=== PATIENT | male | born 1960 | race Caucasian/White ===

== ENCOUNTER 2019-07-30 07:18 | Day surgery (SDC) | payer OTHER ==
[~2019-07-30 07:18] MED LIST: Lactated Ringers 1,000 ML IV SCH; Sodium Chloride 0.9% 10 ML SDV IV PRN; Sodium Chloride 0.9% 10 ML Syringe FLUSH PRN; Sodium Chloride 0.9% 2.5 ML Syringe FLUSH PRN; ceFAZolin 2 GM in Premix Bag 1 BAG IV ONE
--- NOTE | 2019-07-30 08:54 | PCM.PREANE ---
Preanesthetic Assessment - Anesthesia/Transfusion/Family Hx Anesthesia History: Prior Anesthesia Without Reaction (prior stone surg) Family History of Anesthesia Reaction: No Transfusion History: No Prior Transfusion(s) - Review of Systems General: No Symptoms Pulmonary: No Symptoms Cardiovascular: No Symptoms Gastrointestinal: No Symptoms Neurological: No Symptoms Other: Reports: None - Physical Assessment Vital Signs: Last Vital Signs Temp 97.5 F 07/30/19 07:33 Pulse 58 L 07/30/19 07:33 Resp 18 07/30/19 07:33 BP 143/80 H 07/30/19 07:33 Pulse Ox 96 07/30/19 07:33 Height: 5 ft 10 in Weight: 104.78 kg ASA Class: 2 Mental Status: Alert & Oriented x3 Airway Class: Mallampati = 2 Dentition: Reports: Normal Dentition ROM/Head Extension: Full Lungs: Clear to Auscultation, Normal Respiratory Effort Cardiovascular: Regular Rate, Regular Rhythm - Allergies Allergies/Adverse Reactions: Allergies Allergy/AdvReac Type Severity Reaction Status Date / Time No Known Allergies Allergy Verified 07/29/19 15:50 - Blood Blood Available: No - Anesthesia Plan Pre-Op Medication Ordered: None - Acknowledgements Anesthesia Type Planned: General Anesthesia Pt an Appropriate Candidate for the Planned Anesthesia: Yes Alternatives and Risks of Anesthesia Discussed w Pt/Guardian: Yes Pt/Guardian Understands and Agrees with Anesthesia Plan: Yes Additional Comments: PMH: htn, dm2- diet controlled, cervical canal stenosis- asymptomatic PLAN: get PreAnesthesia Questionnaire HEENT History: Reports: None Cardiovascular History: Reports: Hypertension Respiratory History: Reports: None Gastrointestinal History: Reports: None Genitourinary History: Reports: Renal Calculus Musculoskeletal History: Reports: None Neurological History: Reports: None Psychiatric History: Reports: None Endocrine/Metabolic History: Reports: Diabetes, Type II, Obesity/BMI 30+ Other Endocrine/Metabolic History: diet controlled type II diabetes Hematologic History: Reports: None Immunologic History: Reports: None Oncologic (Cancer) History: Reports: None Dermatologic History: Reports: None - Past Surgical History Head Surgeries/Procedures: Reports: None HEENT Surgical History: Reports: None Cardiovascular Surgical History: Reports: None Respiratory Surgical History: Reports: None GI Surgical History: Reports: None Male Surgical History: Reports: Kidney Stone Extraction, Lithotripsy ([facility]) Other Male Surgeries/Procedures: multiple ureteroscopies with stone removed and stent placement Endocrine Surgical History: Reports: None Neurological Surgical History: Reports: None Musculoskeletal Surgical History: Reports: None Oncologic Surgical History: Reports: None Dermatological Surgical History: Reports: None - SUBSTANCE USE Smoking Status *Q: Never Smoker Recreational Drug Use History: No - HOME MEDS Home Medications: Home Meds Pumpkin Seed Extract/Soy Germ [Azo Bladder Control Capsule] 1 tab PO ASDIRECTED PRN 07/29/19 [History] amLODIPine Besylate/Benazepril [Amlodipine-Benazepril 5-10 MG] 1 tab PO DAILY [History] - CURRENT (IN HOUSE) MEDS Current Meds: Current Medications Lactated Ringer's (Ringers, Lactated) 1,000 mls @ 100 mls/hr IV ASDIRECTED [facility] Last Admin: 07/30/19 07:43 Dose: 100 mls/hr Sodium Chloride (Saline Flush) 10 ml FLUSH ASDIRECTED PRN PRN Reason: Keep Vein Open Sodium Chloride (Saline Flush) 2.5 ml FLUSH ASDIRECTED PRN PRN Reason: Keep Vein Open Sodium Chloride (Normal Saline) 10 ml IV ASDIRECTED PRN PRN Reason: IV Use Discontinued Medications Cefazolin Sodium/Dextrose 2 gm (/ Premix) 50 mls @ 100 mls/hr IV ONCALL ONE Stop: 07/30/19 00:30
[2019-07-30] MEDS ORDERED: Midazolam 1 MG/ML 2 ML SDV ONE (09:19)
[2019-07-30] MEDS ORDERED: Lidocaine 2% 5 ML SDV ONE (09:20)
[2019-07-30] MEDS ORDERED: Propofol 200 MG/20 ML SDV ONE (09:20)
[2019-07-30] MEDS ORDERED: fentaNYL 100 MCG/2 ML SDV ONE (09:20)
[2019-07-30] MEDS ORDERED: Iopamidol 408 MG/ML 50 ML SDV ONE (09:40)
[2019-07-30] MEDS ORDERED: Glycopyrrolate 0.2 MG/ML SDV ONE (10:21)
[2019-07-30] MEDS ORDERED: Ondansetron 4 MG/2 ML SDV ONE (10:23)
[2019-07-30] MEDS ORDERED: Ketorolac 30 MG/ML SDV ONE (10:24)
[2019-07-30] MEDS ORDERED: [UNRECOGNIZED DRUG - OTHER] PO PRN (10:54)
[2019-07-30] MEDS ORDERED: SOY GERM PO PRN (10:54)
[2019-07-30] MEDS ORDERED: PUMPKIN SEED EXTRACT PO PRN (10:54)
--- NOTE | 2019-07-30 11:27 | PCM.POSTAN ---
POST ANESTHESIA ASSESSMENT - MENTAL STATUS Mental Status: Alert, Oriented - VITAL SIGNS Vital Signs: Last Vital Signs Temp 98.1 F 07/30/19 10:53 Pulse 63 07/30/19 11:23 Resp 8 L 07/30/19 11:23 BP 150/95 H 07/30/19 11:23 Pulse Ox 96 07/30/19 11:23 - RESPIRATORY Respiratory Status: Respiratory Rate WNL, Airway Patent, O2 Saturation Stable - CARDIOVASCULAR CV Status: Pulse Rate WNL, Blood Pressure Stable - GASTROINTESTINAL GI Status: No Symptoms - POST OP HYDRATION Hydration Status: Adequate & Stable
--- NOTE | 2019-07-30 13:35 | PCM48HPAN ---
Post Anesthesia Note - EVALUATION WITHIN 48HRS OF ANESTHETIC Vital Signs in Normal Range: Yes Patient Participated in Evaluation: Yes Respiratory Function Stable: Yes Airway Patent: Yes Cardiovascular Function Stable: Yes Hydration Status Stable: Yes Pain Control Satisfactory: Yes Nausea and Vomiting Control Satisfactory: Yes Mental Status Recovered: Yes Vital Signs: Last Vital Signs Temp 97.3 F 07/30/19 11:30 Pulse 52 L 07/30/19 12:15 Resp 16 07/30/19 12:15 BP 154/102 H 07/30/19 12:15 Pulse Ox 96 07/30/19 12:15
--- NOTE | 2019-07-30 14:13 | OR ---
SURGEON: Nik Dougherty M.D. DATE OF PROCEDURE: 07/30/2019 PREOPERATIVE DIAGNOSIS: Left lower ureteral stone. POSTOPERATIVE DIAGNOSES: Bladder stone. OPERATION: Cystolithotripsy using the laser. DESCRIPTION OF PROCEDURE: The patient was given general anesthesia. He was in dorsal lithotomy position, prepped and draped in sterile drapes. Cystoscopy was done. The stone was in the bladder. The holmium laser was applied to the stone and eventually broken into multitude of pieces that were all irrigated out. At the end, the bladder looked slightly irritated, but no significant injury. The patient was moved to recovery room in good condition. MAR / RENE /[id number]
[2019-07-31] MEDS ORDERED: [UNRECOGNIZED DRUG - OTHER] PO SCH (09:00)
[2019-07-31] MEDS ORDERED: AMLODIPINE BESYLATE PO SCH (09:00)
[2019-07-31] MEDS ORDERED: BENAZEPRIL PO SCH (09:00)
== END 2019-07-30 12:45 | disposition home or self-care (01) ==
LOC: MW.SDS 07:18
PROVIDERS: ATTEND Urology
DX: N20.1 Calculus of ureter (principal); I10 Essential (primary) hypertension; E11.9 Type 2 diabetes mellitus without complications; E78.5 Hyperlipidemia, unspecified; M48.02 Spinal stenosis, cervical region; Z79.899 Other long term (current) drug therapy
CPT/HCPCS: 52317; 88300; J1885; J2001; J2250; J2405; J2704; J3010; J3490; J7120; Q9966

== ENCOUNTER 2023-06-30 16:14 | Emergency (ER) | payer BC, MEDICARE, OTHER ==
[2023-06-30 17:08] LABS: APPEARANCE,URINE CLEAR; BILIRUBIN,URINE NEGATIVE (NEGATIVE); COLOR,URINE YELLOW; GLUCOSE,URINE >=1000 mg/dL (NEGATIVE); KETONES,URINE 15 mg/dL (NEGATIVE); LEUKOCYTE ESTERASE,URINE NEGATIVE (NEGATIVE); NITRITE,URINE NEGATIVE (NEGATIVE); OCCULT BLOOD,URINE SMALL (NEGATIVE); PH,URINE 5.5 (5.0-8.0); PROTEIN,URINE NEGATIVE (NEGATIVE); UROBILINOGEN,URINE 0.2 EU/dL (<2.0)
[2023-06-30 17:18] LABS: BACTERIA,URINE NOT SEEN (NEGATIVE); EPITHELIAL CELLS,URINE RARE (NONE-FEW); RBC,URINE 0-2 (0-2/HPF); WBC,URINE NONE SEEN (0-5/HPF)
[2023-06-30] MEDS ORDERED: Sodium Chloride 0.9% 1,000 ML IV ONE (17:38)
[2023-06-30] MEDS ORDERED: Ketorolac 30 MG/ML SDV IVPUSH ONE (17:38)
[2023-06-30] MEDS ORDERED: Ondansetron 4 MG/2 ML SDV IVPUSH ONE (17:38)
[2023-06-30 18:07] LABS: BASOPHILS PERCENT AUTO 0.1 % (0.0-1.5); HEMOGLOBIN 17.1 g/dL (13.0-17.0); LYMPHOCYTES ABSOLUTE AUTO 0.4 K/uL (0.6-2.4); LYMPHOCYTES PERCENT AUTO 1.8 % (16.0-40.0); MEAN CORPUSCULAR HEMOGLOBIN 32.3 pg (27.0-32.0); MEAN CORPUSCULAR HGB CONC 34.9 g/dL (31.0-37.0); MEAN CORPUSCULAR VOLUME 92.6 fL (80.0-98.0); MONOCYTES ABSOLUTE AUTO 1.7 K/uL (0.0-0.8); MONOCYTES PERCENT AUTO 8.4 % (0.0-15.0); NEUTROPHILS PERCENT AUTO 89.7 % (48.0-80.0); NRBC ABSOLUTE 0 K/uL; PLATELET COUNT,PLT 201 K/uL (150-400); RED BLOOD CELL COUNT 5.29 M/uL (4.50-5.90); WHITE BLOOD CELL COUNT,WBC 20.12 K/uL (4.0-11.0)
[2023-06-30 18:30] LABS: A/G RATIO 0.9 (0.9-1.6); ALBUMIN 3.7 g/dL (3.4-5.0); BILIRUBIN TOTAL 1.7 mg/dL (0.2-1.0); CALCIUM 8.8 mg/dL (8.5-10.1); CARBON DIOXIDE,CO2 20.8 mmol/L (21.0-32.0); CREATININE 1.9 mg/dL (0.8-1.3); EST CRCL DRUG DOSING (CG) 37.5 mL/min; POTASSIUM,K 3.6 mmol/L (3.5-5.1); PROTEIN TOTAL,TP 7.9 g/dL (6.4-8.2)
[2023-06-30] MEDS ORDERED: cefTRIAXone 1 GM in Sodium Chloride 0.9% 50 ML IV ONE ×2 (18:49→20:42)
== END 2023-06-30 22:38 ==
LOC: MW.ED 16:14
DX: N13.2 Hydronephrosis with renal and ureteral calculous obstruction (principal); I10 Essential (primary) hypertension; E11.9 Type 2 diabetes mellitus without complications; E66.9 Obesity, unspecified; Z68.31 Body mass index [BMI] 31.0-31.9, adult
CPT/HCPCS: 36415; 74176; 80053; 81001; 83605; 83690; 85025; 87040; 96361; 96365; 96375; 96376; 99285; J0696; J1885; J2405; J3490; J7030; 99284